=== PATIENT | female | born 1995 | race Caucasian/White ===

== ENCOUNTER 2021-10-17 21:48 | Outpatient (CLI) | payer OTHER, SELFPAY ==
[2021-10-17 22:57] LABS: HIV 1 & 2 Antibody Non-Reactive (Non-Reactiv); HIV 1 & 2 Antigen Non-Reactive (Non-Reactiv)
[2021-10-17 23:06] LABS: Hepatitis A Antibody IgM Non-Reactive (Nonreactive); Hepatitis B Core AB, Total Non-Reactive (Nonreactive); Hepatitis B Surface Antigen Non-Reactive (Nonreactive); Hepatitis C Virus Antibody Non-Reactive (Nonreactive)
[2021-10-17 23:43] LABS: Hepatitis B Surface AB 9.1 (11.5-1000)
== END 2021-10-17 21:49 | disposition home or self-care (01) ==
PROVIDERS: Family Provider Family Medicine; PCP Family Medicine; Visit Provider Emergency Medicine
DX: Z13.89 Encounter for screening for other disorder (principal); W26.8XXA Contact with other sharp object(s), not elsewhere classified, initial encounter; W45.8XXA Other foreign body or object entering through skin, initial encounter; Y99.0 Civilian activity done for income or pay
CPT/HCPCS: 86705; 86706; 86709; 86803; 87340; 87806

== ENCOUNTER 2022-01-25 09:24 | Outpatient (CLI) | payer OTHER, SELFPAY ==
[2022-01-25 10:47] LABS: Hepatitis B Surface Antigen Non-Reactive (Nonreactive); Hepatitis C Virus Antibody Non-Reactive (Nonreactive)
[2022-01-25 10:49] LABS: HIV 1 & 2 Antibody Non-Reactive (Non-Reactiv); HIV 1 & 2 Antigen Non-Reactive (Non-Reactiv)
== END 2022-01-25 09:25 | disposition home or self-care (01) ==
LOC: LAB 09:27
PROVIDERS: Family Provider Family Medicine
DX: Z20.828 Contact with and (suspected) exposure to other viral communicable diseases (principal)
CPT/HCPCS: 86803; 87340; 87806

== ENCOUNTER 2022-06-08 02:44 | Outpatient (CLI) | payer OTHER, SELFPAY ==
[2022-06-08] VITALS (8 sets, daily range): BP systolic 110–129; BP diastolic 56–75; PULSE 70–89; RESP 14–16; TEMP 36.1–36.7; BMI 34.9
--- NOTE | 2022-06-08 03:04 | USR_ITS ---
PROCEDURE INFORMATION: Exam: US , Limited Exam date and time: 06/08/2022 3:24 AM Age: 26 years old Clinical indication: Lmp or gestational age (in weeks): 23w1d; Other: Spotting; ; Prior surgery; Surgery date: 6+ months; Surgery type: Appy; Additional info: Vaginal bleeding 23.1 weeks TECHNIQUE: Imaging protocol: Real-time ultrasound of the maternal uterus with image documentation. Exam focused on the clinical indication. COMPARISON: US OB >= 14 weeks fetus [id number] 05/19/2022 1:14 PM FINDINGS: Single living fetus in cephalic position. heart activity documented by the technologist, 150 bpm. Posterior placenta. No placenta previa or other visible placental abnormality on the provided images. Amniotic fluid volume appears within normal limits, TANVI 12.2 cm. Cervical length was estimated with transabdominal scanning, measuring approximately 3.8 cm. No definite cervical canal dilation or fluid on the provided images. measurements were not obtained at this time. Evaluation of anatomy was not performed at this time. The stomach and urinary bladder were visualized/imaged. No visible maternal adnexal abnormality. The urinary bladder was not completely evaluated/imaged at this time. US/US OB limited [id number] IMPRESSION: 1. Single living intrauterine fetus, details above. 2. Posterior placenta. No placenta previa or other visible placental abnormality on the provided images. 3. Normal amniotic fluid volume. 4. Other details discussed above.
[2022-06-08 03:24] LABS: Actim Prom Positive
[2022-06-08 03:24] LABS: Nitrazine Paper, PH Inconclusive
[2022-06-08 04:12] LABS: Add Urine Culture? No; Bacteria Urine TRACE /hpf; Bilirubin Urine Neg (Negative); Blood Urine Neg (Negative); Glucose Urine UA Norm (Normal); Ketones Urine 1+ (Negative); Leukocyte Esterase Urine Negative (Negative); Mucus Urine TRACE /hpf; Nitrate Urine Negative (Negative); Protein Urine Neg (Negative); RBC Urine 0-4 /hpf (0-2); Urine Appearance Clear (CLEAR); Urine Color Yellow (Yellow); Urobilinogen Urine Neg (Negative); WBC Urine 0-4 /hpf (0-5); pH Urine 6.5 (5-7)
[2022-06-08 04:21] LABS: Basophils % 0.2 %; Eosinophils % 0.1 %; Hematocrit 37.2 % (37.0-47.0); Hemoglobin 12.4 g/dL (11.5-15.3); Lymphocytes # 1.5 10^3/uL (0.8-4.8); Lymphocytes % 14.4 %; Mean Corpuscular HGB Conc 33.3 g/dL (30.0-36.0); Mean Corpuscular Hemoglobin 31.5 pg (28.0-34.0); Mean Corpuscular Volume 94.4 fl (81-99); Mean Platelet Volume 11.1 fL (7.4-10.4); Monocytes # 0.4 10^3/uL (0.2-0.9); Monocytes % 4.1 %; Neutrophils # 8.56 10^3/uL (1.8-7.7); Neutrophils % 80.6 %; Nucleated Red Blood Cells % 0 %; Platelet Count 248 10^3/cmm (130-400); Red Blood Count 3.94 10^6/uL (4.1-5.3); Red Cell Distribution Width 13.1 % (12.1-15.1); White Blood Count 10.6 10^3/uL (4.0-10.0)
[2022-06-08] MEDS: betamethasone susp 6 mg/mL 5 mL 12 MG IM (04:28)
--- NOTE | 2022-06-10 06:52 | P.TNLD_ITS ---
OB L&D Triage Visit Information: Date of evaluation: 06/08/22 Evaluation: monitor accelerations: Present 15x15 Laboratory results: Laboratory Tests 06/08/22 06/08/22 06/08/22 03:10 04:00 04:10 WBC 10.6 H RBC 3.94 L Hgb 12.4 Hct 37.2 MCV 94.4 MCH 31.5 MCHC 33.3 RDW 13.1 Plt Count 248 MPV 11.1 H Neut % (Auto) 80.6 Lymph % (Auto) 14.4 Carl[place] % (Auto) 4.1 Eos % (Auto) 0.1 Baso % (Auto) 0.2 Neut # (Auto) 8.56 H Lymph # (Auto) 1.5 Carl[place] # (Auto) 0.4 Eos # (Auto) 0.0 Baso # (Auto) 0.0 Nucleated RBC % (a uto) 0 Nucleated RBCs # 0.0 Insulin-like GF I Positive Urine Color Yellow Urine Appearance Clear Urine pH 6.5 Ur Specific Gravit y 1.010 Urine Protein Neg Urine Glucose (UA) Norm Urine Ketones 1+ H Urine Blood Neg Urine Nitrate Negative Urine Bilirubin Neg Urine Urobilinogen Neg Ur Leukocyte Dede ase Negative Urine RBC 0-4 H Urine WBC 0-4 H Ur Squamous Epith Cells 10-15 H Amorphous Sediment Not Reportable Urine Bacteria Trace Urine Mucus Trace Comments: The patient presented to the hospital because she had had some mild vaginal bleeding. As a part of her evaluation she was found to have equivocal nitrazine paper. An actin PROM was performed and was positive. As result an ultrasound was performed which found her TANVI to be 13. A sterile speculum exam was performed and no pooling was noted. There is no fluid from the cervical os with a cough. And 2 ferning slides were both found to be negative. The patient had not noted any fluid. I kept the patient for about 12 hours to make sure there was no leaking. And she had no leaking despite multiple times of getting up and walking. She had no further bleeding. She was discharged home. Final Diagnosis Final Diagnosis (1) Vaginal bleeding during : Plan: Minimal. Resolved during hospital stay. Status: Acute Code(s): O46.90 - Antepartum hemorrhage, unspecified, unspecified trimester Coding Level of Care Code Acute Guest Relation Officer for [facility] Fwd Diagnoses Vaginal bleeding during O46.90
== END 2022-06-08 13:51 | disposition home or self-care (01) ==
LOC: OPOB 02:44 → OBGYN 02:45
PROVIDERS: Visit Provider Family Medicine
DX: O46.92 Antepartum hemorrhage, unspecified, second trimester (principal); Z3A.23 23 weeks gestation of pregnancy
CPT/HCPCS: 12345; 36415; 76815; 81001; 83986; 84112; 85025; 96372; J0702

== ENCOUNTER 2022-09-06 14:25 | Outpatient (CLI) | payer OTHER, SELFPAY ==
[2022-09-06] VITALS (27 sets, daily range): BP systolic 92–118; BP diastolic 52–72; PULSE 105–138; RESP 17; TEMP 37.4–37.9; O2SAT 85–100; BMI 34.2
[2022-09-06 15:23] LABS: Glucose Urine UA Norm (Normal); Ketones Urine 1+ (Negative); Protein Urine Neg (Negative); Urine Appearance SL Hazy (CLEAR); Urine Color Yellow (Yellow); pH Urine 5 (5-7)
[2022-09-06 15:24] LABS: Bilirubin Urine Neg (Negative); Blood Urine Neg (Negative); Leukocyte Esterase Urine 1+ (Negative); Nitrate Urine Negative (Negative); Urobilinogen Urine 1 mg/dL (Negative)
[2022-09-06 15:25] LABS: Bacteria Urine 2+ /hpf; Mucus Urine 2+ /hpf; Squamous Epithelial Cell Urine 25-40 /hpf (0-5); Transitional Epi Cells Urine 0-4 /hpf
[2022-09-06 15:26] LABS: Add Urine Culture? No
[2022-09-06] MEDS: lactated ringers 1,000 ML 999 ML IV (16:02)
[2022-09-06] MEDS: cefTRIAXone 1,000 MG in sodium chloride 0.9% (plus) 50 ML 100 MG IV (16:02)
[2022-09-06] MEDS: acetaminophen 325 mg Tablet 650 MG PO (16:04)
[2022-09-06 17:52] LABS: Influenza A by IFA negative (Negative); Influenza B by IFA negative (Negative); SARS Covid-2 Antigen positive (Negative)
== END 2022-09-06 18:27 | disposition home or self-care (01) ==
LOC: OPOB 14:32 → OBGYN 14:33
PROVIDERS: Absent Provider Family Medicine; Family Provider Family Medicine; Visit Provider Family Medicine
DX: O26.899 Other specified pregnancy related conditions, unspecified trimester (principal); Z3A.00 Weeks of gestation of pregnancy not specified; R10.2 Pelvic and perineal pain; R10.9 Unspecified abdominal pain
CPT/HCPCS: 36415; 59025; 81001; 87426; 87804; 99211; J0696; J7120

== ENCOUNTER 2022-09-22 15:43 | Inpatient (IN) | payer OTHER, SELFPAY ==
[2022-09-22] VITALS (10 sets, daily range): BP systolic 118–125; BP diastolic 60–77; PULSE 68–100; RESP 15–17; TEMP 36.3–37; BMI 34.0
[2022-09-22] MEDS: acetaminophen 325 mg Tablet 650 MG PO (15:45)
[2022-09-22 16:04] LABS: Basophils % 0.2 %; Eosinophils % 0.1 %; Lymphocytes # 1.5 10^3/uL (0.8-4.8); Lymphocytes % 17.1 %; Mean Corpuscular HGB Conc 32.4 g/dL (30.0-36.0); Mean Corpuscular Hemoglobin 30.4 pg (28.0-34.0); Mean Corpuscular Volume 93.7 fl (81-99); Mean Platelet Volume 11.6 fL (7.4-10.4); Monocytes # 0.6 10^3/uL (0.2-0.9); Monocytes % 6.5 %; Neutrophils # 6.78 10^3/uL (1.8-7.7); Neutrophils % 75.5 %; Nucleated Red Blood Cells % 0 %; Platelet Count 256 10^3/cmm (130-400); Red Blood Count 3.95 10^6/uL (4.1-5.3)
[2022-09-22] MEDS: fentaNYL 50 mcg/mL INJ 2mL IVP (18:04)
[2022-09-22] MEDS: dextrose 5%-lactated ringers 1,000 ML 125 ML IV (18:04)
[2022-09-22] MEDS: ondansetron 2 mg/ML SDV 2 mL 4 MG IVP (19:45)
[2022-09-22] MEDS: oxytocin 30 UNIT/500 ML BAG 600 UNIT IV (20:12)
--- NOTE | 2022-09-22 20:28 | PM.OPHPUD ---
Labor & Delivery H&P Update Date of Procedure: September 22, 2022 Date H&P Performed: 09/22/22 Changes to previous documentation: The patient cervix is dilated to 6 cm with active contractions Admission Diagnosis: 26-year-old 3 para 2-0-0-2 Planned procedure: Spontaneous vaginal delivery Other information: The patient is an otherwise healthy 26-year-old female who presented to the hospital complaining of increasing contractions. It seems in the office earlier that day and her membranes have been stripped. Shortly thereafter she began having strong contractions and presented to the hospital in active labor. Her membranes were intact. She is hunter consistently. Her cervix have been 4 cm dilated in my office. Her been remarkable for having antibody screen positive with an anti-D ratio that was followed through her . The ratio got as high as 1:8. But was never higher than that. Her most recent ratio was 1:4. Her blood type is A-. Her antibody screen was negative. She had an elevated glucose screen initially, but passed 3-hour test. She is rubella immune. She is GBS negative. She received her Tdap immunization on August 24, 2022 the remainder of her infectious disease profile was within normal limits. Related Problem List Diagnoses (1) 38 weeks gestation of : (2) Anti-D antibodies present during : A&P Assessment and plan (1) 38 weeks gestation of : Anticipate a routine labor and vaginal delivery. The patient does not desire an epidural. Status: Acute (2) Anti-D antibodies present during : Status: Acute
--- NOTE | 2022-09-22 20:33 | P.PCNOB_ITS ---
Delivery Note: Date of delivery: September 22, 2022 Pre-delivery diagnoses: 26-year-old 3 para 2-0-0-2 at 38 weeks estimated gestational age in active labor Post-delivery diagnoses: Status post spontaneous vaginal delivery Procedure: Spontaneous vaginal delivery Delivering Physician: Herrera Renteria Estimated blood loss (mL): 150 Pre-Delivery Course: The patient presented to the hospital in active labor. An amniotomy was performed. She did receive some fentanyl. She did not have an epidural. She presented to complete without difficulty. heart tones demonstrated good variability with accelerations throughout the labor process. Delivery: DELIVERY: The patient progressed to complete without difficulty. She delivered a female with a weight of 6 pounds 9 ounces with Apgars of 8, 9. The baby was delivered from the OP position and placed on the mother's abdomen. The cord was then clamped and cut 1 minute after delivery. There was no nuchal cord. There was no meconium. The placenta and 3 vessel cord were delivered intact shortly thereafter. The perineum and vaginal vault were carefully examined. No lacerations were noted. Both the mother and the baby were in stable condition. Post-Delivery Status: Good A&P Assessment and plan (1) Spontaneous vaginal delivery: I anticipate routine care. (2) Anti-D antibodies present during : (3) 38 weeks gestation of : Coding Level of Care Code Acute Fishing Tool Supervisor for [facility] Fwd Diagnoses Spontaneous vaginal delivery O80 Anti-D antibodies present during O36.0190 38 weeks gestation of Z3A.38
[2022-09-22] MEDS: lanolin oint 7 gm 1 APPLIC TOPICAL (21:56)
[2022-09-22] MEDS: ibuprofen 800 mg tablet PO (21:56)
[2022-09-23] VITALS (8 sets, daily range): BP systolic 111–127; BP diastolic 56–74; PULSE 52–90; RESP 15–16; TEMP 36–36.2
[2022-09-23] MEDS: benzocaine-menthol 78 gm Canister 1 SPRAY TOPICAL (02:52)
[2022-09-23] MEDS: escitalopram 10 mg Tablet PO (08:19)
[2022-09-23] MEDS: prenatal vitamin Capsule 1 CAP PO (08:19)
[2022-09-23] MEDS: docusate sodium 100 mg Capsule PO ×2 (08:19→17:37)
[2022-09-23] MEDS: ibuprofen 800 mg tablet PO ×2 (08:19→14:45)
[2022-09-23 08:38] LABS: Hematocrit 39.1 % (37.0-47.0); Hemoglobin 12.9 g/dL (11.5-15.3); Mean Corpuscular Hemoglobin 30.7 pg (28.0-34.0); Mean Corpuscular Volume 93.1 fl (81-99); Mean Platelet Volume 11.3 fL (7.4-10.4); Platelet Count 248 10^3/cmm (130-400); White Blood Count 11.3 10^3/uL (4.0-10.0)
--- NOTE | 2022-09-23 17:14 | P.DS_ITS ---
Discharge Providers CHRONIC DISEASE MANAGER Date of Admission: 09/22/22 15:43 Date of Discharge: 09/23/22 Attending Provider at Admission: Herrera Renteria MD Attending Provider at Discharge: Herrera Renteria MD Primary Care Provider: [employer] Diagnoses at Discharge Discharge Diagnosis (1) Spontaneous vaginal delivery: Status: Acute (2) Anti-D antibodies present during : Status: Acute (3) 38 weeks gestation of : Status: Acute Reason for Visit Reason for Visit: contractions Hospital Course Hospital Course The patient presented to the hospital in active labor. An amniotomy was perfo rmed. She progressed to complete and had an unremarkable delivery of a healthy- appearing female . Her course was also unremarkable. She did have some difficulty with breast-feeding at first, but that improved with assistance from the wildlife removal specialist. Her bleeding was within normal limits. Her pain was well controlled. There were no further concerns. Information Peripartum Data: Delivery Method: Vaginal Physical Exam Narrative: The patient is alert. She appears comfortable. Her heart has a regular rate and rhythm with no murmurs appreciated. Lungs are clear to auscultation bilaterally. Her fundus is firm and below the umbilicus. Discharge Data Studies Completed and Pending Laboratory Results WBC 11.3 10^3/uL (4.0-10.0) H 09/23/22 08:08 RBC 4.20 10^6/uL (4.1-5.3) 09/23/22 08:08 Hgb 12.9 g/dL (11.5-15.3) 09/23/22 08:08 Hct 39.1 % (37.0-47.0) 09/23/22 08:08 MCV 93.1 fl (81-99) 09/23/22 08:08 MCH 30.7 pg (28.0-34.0) 09/23/22 08:08 MCHC 33.0 g/dL (30.0-36.0) 09/23/22 08:08 RDW 14.0 % (12.1-15.1) 09/23/22 08:08 Plt Count 248 10^3/cmm (130-400) 09/23/22 08:08 MPV 11.3 fL (7.4-10.4) H 09/23/22 08:08 Neut % (Auto) 75.5 % 09/22/22 15:30 Lymph % (Auto) 17.1 % 09/22/22 15:30 [place] % (Auto) 6.5 % 09/22/22 15:30 Eos % (Auto) 0.1 % 09/22/22 15:30 Baso % (Auto) 0.2 % 09/22/22 15:30 Neut # (Auto) 6.78 10^3/uL (1.8-7.7) 09/22/22 15:30 Lymph # (Auto) 1.5 10^3/uL (0.8-4.8) 09/22/22 15:30 [place] # (Auto) 0.6 10^3/uL (0.2-0.9) 09/22/22 15:30 Eos # (Auto) 0.0 10^3/uL (0.0-0.8) 09/22/22 15:30 Baso # (Auto) 0.0 10^3/uL (0.0-0.1) 09/22/22 15:30 Nucleated RBC % (auto) 0 % 09/22/22 15:30 Nucleated RBCs # 0.0 /100WBC 09/22/22 15:30 Blood Type A Negative 09/22/22 15:30 Rho(D) Type Negative 09/22/22 15:30 Antibody Screen Positive 09/22/22 15:30 Antibody Identification Anti-D 09/22/22 15:30 Vitals Last Vital Signs Temp 96.8 F L 09/23/22 15:40 Pulse 80 09/23/22 15:40 Resp 15 09/23/22 15:42 BP 125/64 09/23/22 15:40 O2 Del Method 09/22/22 16:12 Discharge Plan Discharge Patient Disposition: Home Condition: Stable Prescriptions: New ibuprofen 800 mg Tablet 800 mg PO TID Qty: 45 0RF escitalopram oxalate 10 mg Tablet 10 mg PO DAILY Qty: 30 2RF Continued 1 tab PO DAILY Vitamin C 1,000 mg Tablet 1,000 mg PO DAILY Discontinued bupropion HCl [Wellbutrin XL] 300 mg Tablet Extended Release 24 Hr 300 mg PO DAILY Discharge Orders: Discharge Order (Routine); Ordered 09/23/22 Ordered By: Herrera Renteria Referrals: Herrera Renteria MD [Family Provider] - 6 Weeks Discharge Diet: Usual diet Discharge Activity: Limit activity as instructed Patient Instructions: Depression (DC), Bleeding (DC), Preeclampsia and Eclampsia After Delivery (GEN), OB Discharge Report, OB Food/Drug Interaction Guide, OB Care at Home, Opioid Safety, OB Vaginal Deliveries Discharge Attestations CHRONIC DISEASE MANAGER Time Spent in Discharge Care*: less than 30 min Coding Level of Care Code Acute Telehealth Nurse for [facility] Fwd Diagnoses Spontaneous vaginal delivery O80 Anti-D antibodies present during O36.0190 38 weeks gestation of Z3A.38
== END 2022-09-23 20:56 | disposition home or self-care (01) | DRG 807 ==
LOC: OBGYN 18:54
PROVIDERS: Admitting Provider Family Medicine; Family Provider Family Medicine; Visit Provider Family Medicine
DX: O36.0130 Maternal care for anti-D [Rh] antibodies, third trimester, not applicable or unspecified (principal); Z37.0 Single live birth; Z3A.38 38 weeks gestation of pregnancy
CPT/HCPCS: 12345; 36415; 59025; 59409; 80503; 85025; 85027; 86850; 86870; 86900; 96374; 99211; J2405; J2590; J3010; J7121

== ENCOUNTER 2023-01-11 08:02 | Outpatient (CLI) | payer OTHER, SELFPAY ==
[2023-01-11 08:43] LABS: Alanine Aminotransferase 162 U/L (0-33); Albumin Level 4.5 g/dL (3.5-5.2); Alkaline Phosphatase 87 U/L (35-105); Aspartate Amino Transferase 116 U/L (0-32); Blood Urea Nitrogen 16 mg/dL (6-20); Calcium 9.9 mg/dL (8.5-10.5); Carbon Dioxide 26 mmol/L (22-29); Chloride 100 mmol/L (98-107); Glomerular Filtration Rate 146.9 mL/min (90-130); Glucose 83 mg/dL (65-115); Osmolality Calculated 286 mOsm/kg (285-295); Sodium 138 mmol/L (136-145); Total Bilirubin 0.6 mg/dL (0.15-1.2); Total Protein 7.5 g/dL (6.6-8.7)
== END 2023-01-11 09:45 | disposition home or self-care (01) ==
LOC: OPOB 08:03
PROVIDERS: Family Provider Family Medicine; Visit Provider Obstetrics & Gynecology
DX: Z36.9 Encounter for antenatal screening, unspecified (principal); Z3A.00 Weeks of gestation of pregnancy not specified
CPT/HCPCS: 80053

== ENCOUNTER 2023-01-12 14:43 | Outpatient (CLI) | payer OTHER, SELFPAY ==
--- NOTE | 2023-01-12 15:00 | US_ITS ---
WS: [id number] RIGHT UPPER QUADRANT ULTRASOUND HISTORY: R74.8 - Abnormal levels of other serum enzymes COMPARISON: None available. Liver: 15.7 cm in length. Normal size liver and echogenicity. No bile duct dilatation or mass. Portal Vein: Normal hepatopetal flow with monophasic waveform. Gallbladder: Normally distended gallbladder with numerous small stones layering in the dependent port ion. No pericholecystic fluid or gallbladder wall thickening. CBD: 0.3 cm Pancreas: Normal size and echogenicity. Right kidney: 10.8 cm in length. Normal size and echogenicity. No hydronephrosis or mass. Aorta and IVC: Unremarkable abdominal aorta and IVC. No ascites. US/US gall bladder [id number] IMPRESSION: 1. Cholelithiasis without acute cholecystitis. 2. No bile duct dilatation.
== END 2023-01-12 14:44 | disposition home or self-care (01) ==
LOC: RAD 14:47
PROVIDERS: PCP Family Medicine; Visit Provider Obstetrics & Gynecology
DX: R10.11 Right upper quadrant pain (principal); R74.8 Abnormal levels of other serum enzymes; K80.20 Calculus of gallbladder without cholecystitis without obstruction
CPT/HCPCS: 76705

== ENCOUNTER 2023-02-04 08:20 | Day surgery (SDC) | payer OTHER, SELFPAY ==
[2023-02-03 10:05] VITALS: BMI 35.8
[2023-02-04] VITALS (11 sets, daily range): BP systolic 95–124; BP diastolic 59–72; PULSE 68–94; RESP 16–17; TEMP 36.4–36.6; O2SAT 94–99
--- NOTE | 2023-02-04 08:45 | W.PM.OPSUD ---
Surgery/Procedure H&P Update DATE OF PROCEDURE: February 04, 2023 DATE H&P PERFORMED: 01/14/23 H&P UPDATE INFORMATION: I have reviewed H&P completed within last 30 days, I have examined patient prior to procedure and No changes to prior documentation PLANNED PROCEDURE: Operation Date: 02/04/23 09:50 Proposed Procedures p 90775 Lap jasmin K80.20(Not Applicable) - Rishabh Jamison DO
--- NOTE | 2023-02-04 08:46 | ANES.PREANE2 ---
Pre-Anesthetic Assessment Height/Weight: Height 1.57 m Weight 88.904 kg Temp Pulse Resp BP Pulse Ox O2 Del Method 97.7 F 89 16 124/68 97 Room Air 02/04/23 08:35 02/04/23 08:35 02/04/23 08:35 02/04/23 08:35 02/04/23 08:35 02/04/23 08:35 Preop Diagnosis: symptomatic cholelithiasis Operation Date: 02/04/23 09:50 Proposed Procedures p 12332 Lap jasmin K80.20(Not Applicable) - Rishabh Jamison DO Familial anesthetic complications: none Was Beta Scarlett taken within 24 hours: N/A Was Clonidine taken within 24 hours: N/A Last intake: Intake Last Liquid Date 02/03/23 Last Liquid Time 22:00 Last Solid Date 02/03/23 Last Solid Time 16:30 Social No alcohol and No tobacco Exam alert, oriented x 3, clear to auscultation bilaterally and regular rate & rhythm Airway Submandibular: within normal limits Cervical ROM: within normal limits Mallampati: Class I Dentition: full Pulmonary None reported CV/HEM None reported None reported Hepatic None reported GI None reported Metabolic None reported Musc/skel None reported Neuropsych None reported Anesthetic Plan ASA status: 1 Anesthesia: General Medications/Allergies Home Medications Medication Instructions Recorded Confirmed Last Taken Type 1 tab PO DAILY 06/08/22 02/03/23 02/03/23 History escitalopram oxalate 10 mg tablet 10 mg PO DAILY #30 tabs 09/23/22 02/03/23 02/03/23 Rx ibuprofen 800 mg tablet 800 mg PO TID #45 tabs 09/23/22 02/03/23 12/08/22 Rx docusate sodium 100 mg capsule 100 mg PO BID #14 caps 02/04/23 Unknown Rx ([facility]) hydrocodone 5 mg-acetaminophen 325 1 tab PO Q6H PRN pain #20 tabs 02/04/23 Unknown Rx mg tablet Allergies Allergy/AdvReac Type Severity Reaction Status Date / Time No Known Allergies Allergy Verified 02/03/23 10:03 PFSH Anesthesia Surgical History History of laparoscopic appendectomy History of tonsillectomy and adenoidectomy Data Anesthesia Cardiac Studies: No Data to Display
[2023-02-04 08:48] LABS: OR HCG Qualitative Urine Negative (Negative)
[2023-02-04] MEDS: sodium chloride 0.9% 1,000 ML 30 ML IV (08:56)
[2023-02-04] MEDS: ceFAZolin 2,000 MG in sodium chloride 0.9% (plus) 50 ML 100 MG IV (08:58)
[2023-02-04] MEDS: lidocaine-epi 2% 20 mL INJ 10 ML INJECTION (09:20)
--- NOTE | 2023-02-04 09:38 | P.OP_ITS ---
Operative Report Date of procedure: February 04, 2023 Pre-op diagnosis: Preop Diagnosis symptomatic cholelithiasis Post-op diagnosis: same Procedure done: Laparoscopic cholecystectomy Implants: None Specimens removed/disposition: Gallbladder Surgeon: Dr. Rishabh Jamison DO Anesthesia: General Estimated blood loss (mL): 5 Complications: None apparent Brief History: This is a very pleasant 27-year-old female with symptomatic cholelithiasis. Laparoscopic cholecystectomy was indicated. The risk and benefits were explained and documented. Procedure: Patient was wheeled into the operative room and placed on the OR table in a supine position. Abdomen was inspected prepped and draped in usual sterile fashion. Time-out was performed and all present were in agreement. A 15 blade scalp was used to make a stab incision in the left upper quadrant and intra- abdominal insufflation was achieved using a Veress needle. After localizing the tissue incisions were made and a 5 millimeter trocar was placed into the umbilicus as well as 2 in the right upper quadrant. A 12 millimeter trocar was placed in the epigastrium. Gallbladder was grasped and elevated. The triangle of Calot was carefully dissected using blunt dissection and electrocautery until the triangle of Calot clearly identified. The cystic duct was clipped proximally and double clipped distally. The duct was then ligated proximally. The cystic artery was doubly clipped and ligated. The gallbladder was then removed from the liver bed using electrocautery. The gallbladder was removed from the abdomen using an Endo-Catch bag through the epigastric incision. The liver bed was inspected and no bleeding was seen. The abdomen was irrigated and suctioned. All ports removed. Skin was washed and dried. Incisions were closed with 3-0 and 4-0 Monocryl in a subcuticular interrupted fashion. Skin glue was applied. Patient tolerated the procedure well.
[2023-02-04] MEDS: fentaNYL 50 mcg/mL INJ 2mL IVP (10:01)
[2023-02-04] MEDS: HYDROcodone-acetaminophen 5-325 mg Tablet 1 TAB PO (10:45)
--- NOTE | 2023-02-04 16:58 | ANE.PACU2 ---
Inpatient post-anesthesia follow up: Airway intact: Yes Vital signs: Temperature 97.6 F Pulse Rate 72 Respiratory Rate 16 Blood Pressure 117/68 Pulse Oximetry 98 Oxygen Delivery Me thod Room Air Oxygen Flow Rate 2 Fraction of Inspir ed Oxygen Hydration adequate: Yes Nausea and vomiting: No Pain level: 3 Mental status: Baseline
== END 2023-02-04 11:04 | disposition home or self-care (01) ==
PROVIDERS: Anesthesiology; PCP Family Medicine; Visit Provider Surgery
PROC: 0FT44ZZ Resection of Gallbladder, Percutaneous Endoscopic Approach (ICD-10-PCS; CPT 47562; principal; 2023-02-04 09:40)
DX: K80.10 Calculus of gallbladder with chronic cholecystitis without obstruction (principal)
CPT/HCPCS: 47562; 81025; 84703; 88304; J0690; J1100; J1200; J1885; J2250; J2405; J2704; J3010; J3490; J7030